=== PATIENT | male | born 1950 | race Caucasian/White ===

== ENCOUNTER 2024-07-24 09:59 | Observation (INO) | payer MEDICARE ==
[~2024-07-24] VITALS: Ht 182.9 cm; Wt 81.6 kg
--- NOTE | 2024-07-24 10:07 | ERN ---
General Chief Complaint: Chest Pain Stated Complaint: CHEST PAIN Time Seen by MD: 10:01 Source: patient History of Present Illness Initial Comments Patient is a 74-year-old male coming in with chest pressure. Patient states that the chest pressure has been ongoing for three days. He states [place] He also states that the pain became worse this morning decided to come in for further evaluation. No fever or chills. Allergies: Coded Allergies: No Known Allergies (Unverified Allergy, Unknown, 07/24/24) Past Medical History Past Medical History: CAD, Diabetes-Type II, High Cholesterol, Heart Disease, Hypertension Past Surgical History: Other Surgical History Other: X3 CARDIAC STENTS ROS Dictation CONSTITUTIONAL: No chills, no fever, no weakness, no diaphoresis, no malaise. HEAD/FACE: No signs of trauma. EENT: No eye pain, no blurred vision, no tearing, no double vision, no ear pain, no ear discharge, no nose pain, no nasal congestion, no throat pain, no throat swelling, no mouth pain. RESPIRATORY: No cough, no orthopnea, no SOB, no stridor, no wheezing. CARDIOVASCULAR: chest pain, no edema, no palpitations, no syncope. GASTROINTESTINAL/ABDOMINAL: No abdominal pain, no constipation, no diarrhea, no nausea, no vomiting. GENITOURINARY: No abnormal discharge, no dysuria, no frequent urination, no hem aturia. No complaints of pain in the genitals. MUSCULOSKELETAL: No back pain, no gout, no joint pain, no joint swelling, no mu scle pain, no muscle stiffness, no neck pain. INTEGUMENTARY: No change in color, no change in hair/nails, no dryness, no lesion, no lumps, no rash. NEUROLOGICAL/PSYCH: No anxiety, not depressed, no emotional problem, no headache, no numbness, no pre-existing deficit, no history of seizures, no tremors, no weakness. HEMATOLOGIC/LYMPHATIC: Not anemic, no history of blood clots, no apparent bleeding, no bruising, glands not swollen. All Systems Negative, Except as Noted. Physical Exam Physical Exam Dictation VITAL SIGNS: Reviewed. GENERAL APPEARANCE: Alert, oriented x3, no acute distress, obese. HEAD AND FACE: Non-traumatic. EYES: PERRL, pink conjunctivas, eyelid no trauma, anterior chamber clear. EARS: Pinnas intact and no signs of trauma or erythema. Ear canals clear and no discharge. TMs no erythema. NOSE: No discharge, no bleeding. OROPHARYNX: Mouth normal, teeth no caries, tongue pink. Pharynx clear, no erythema. Tonsils no exudates, no abscesses noted. Mucous membrane moist. NECK: Supple, non-tender, no thyromegaly, no masses, no JVD, no bruits. BREAST: Deferred. CHEST: No tenderness, no crepitus, no paradoxical movement, no retractions. LUNGS: Clear, well-ventilated, symmetric, no rales, no wheezing, no rhonchi, no stridor, good breath sounds bilaterally. HEART: Regular rate, regular rhythm, no murmur, no gallops. VASCULAR: No peripheral edema. ABDOMEN: Soft, positive bowel sounds, nondistended, no guarding, nontender, no rebound, no masses no hepatomegaly, no splenomegaly, no Esparza's sign, no hernias. RECTAL: Deferred. GENITAL: Deferred. NEUROLOGICAL: Normal speech, gross motor function intact, gross sensory function intact. MUSCULOSKELETAL: Neck nontender, full range of motion, back nontender, full range of motion. EXTREMITIES: Nontender, full range of motion. SKIN: Color pink, dry, no turgor, no rash, no lacerations, no abrasions, no contusions. LYMPHATICS: Deferred. Results Laboratory and Microbiology Lab and Micro Result Laboratory Tests Test 07/24/24 10:08 07/24/24 11:32 07/24/24 11:39 White Blood Count 5.3 K/uL (4.8-10.8) Red Blood Count 4.52 MIL/uL (4.50-6.20) Hemoglobin 14.3 g/dL (14.0-18.0) Hematocrit 41.9 % (42-54) L Mean Corpuscular Volume 92.7 fL (79-99) Mean Corpuscular Hemoglobin 31.6 pg (27.0-33.0) Mean Corpuscular Hemoglobin Concent 34.1 g/dL (32.0-36.0) Red Cell Distribution Width 13.1 % (11.0-15.5) Platelet Count 186 K/uL (130-400) Mean Platelet Volume 9.8 fL (7.5-10.5) Immature Granulocyte % (Auto) 0.4 % (0-1) Neutrophils (%) (Auto) 54.6 % (40.0-77.0) Lymphocytes (%) (Auto) 27.1 % (21.0-51.0) Monocytes (%) (Auto) 12.5 % (3.0-13.0) Eosinophils (%) (Auto) 4.5 % (0.0-8.0) Basophils (%) (Auto) 0.9 % (0.0-5.0) Neutrophils # (Auto) 2.9 K/uL (1.8-7.7) Lymphocytes # (Auto) 1.4 K/uL (1.0-4.8) Monocytes # (Auto) 0.7 K/uL (0.1-1.0) Eosinophils # (Auto) 0.24 K/uL (0.00-0.70) Basophils # (Auto) 0.05 K/uL (0.00-0.20) Absolute Immature Granulocyte (auto 0.02 K/uL (0-1) Nucleated Red Blood Cells 0.0 % (0.0-0.19) Prothrombin Time 11.0 SEC (9.6-11.6) Prothromb Time International Ratio 1.04 (0.85-1.15) Activated Partial Thromboplast Time 28.2 SEC (26.3-35.5) Sodium Level 140 mmol/L (136-145) Potassium Level 3.6 mmol/L (3.5-5.1) Chloride Level 107 mmol/L (101-111) Carbon Dioxide Level 28 mmol/L (21-32) Blood Urea Nitrogen 13 mg/dL (7-18) Creatinine 0.7 mg/dL (0.5-1.3) Glomerular Filtration Rate Calc 97 mL/min (>90) Random Glucose 106 mg/dL (70-105) H Total Calcium 9.0 mg/dL (8.5-10.1) Magnesium Level 2.00 mg/dL (1.80-2.40) Total Creatine Kinase 82 U/L (21-232) Troponin I High Sensitivity 5 ng/L (4-75) 5 ng/L (4-75) B-Type Natriuretic Peptide 33 pg/mL (0-100) Urine Color LIGHT-YELLOW (YELLOW) Urine Appearance CLEAR (CLEAR) Urine pH 6.5 (5.0-8.0) Urine Specific [place] 1.005 (1.001-1.031) Urine Protein NEGATIVE mg/dL (NEGATIVE) Urine Glucose (UA) NEGATIVE mg/dL (NEGATIVE) Urine Ketones 5 mg/dL (NEGATIVE) H Urine Occult Blood NEGATIVE (NEGATIVE) Urine Nitrate NEGATIVE (NEGATIVE) Urine Bilirubin NEGATIVE mg/dL (NEGATIVE) Urine Urobilinogen 0.2 mg/dL (0.2-1.0) Urine Leukocyte Esterase NEGATIVE Deepak/uL Urine RBC None /HPF (0-1) Urine WBC None /HPF (0-1) Urine Squamous Epithelial Cells RARE /HPF (0-2) Urine Bacteria None /HPF (None Seen) Labs Reviewed?: Yes EKG/XRAY/US/CT/MRI EKG Comment 07/24/2024 time 9:54 a.m. Ventricular rate [address] wave elevation or depression Sinus rhythm OK 153 MDM MDM: Differential diagnosis: ACS, NSTEMI, chest pain, history of stent placement Rationale: Tests considered and ordered secondary to shared decision making include: labs, ECG and radiology Previous outside records reviewed: Old ER visits. Risk of complication and/or morbidity or mortality of patient management: None Medications-Per medication reconciliation Need for hospitalization: Patient does meet criteria for hospitalization. Need for emergency major/minor surgery: No There are no social concerns with this patient. Prescription drug management Prescriptions will include symptomatic care Patient's prior external medical records from other ER visits were reviewed by me as indicated. Prior testing and results from previous visits were reviewed. Prior tests were taken into account with medical decision making and resource utilization, independent historian/historians were used to obtain complete medical history. I independently interpreted the test that were performed, results were reviewed by me and considered findings on radiology if ordered. Medical management and examination interpretation discussions were had by me with other qualified healthcare professionals as indicated for the patient's care. Patient is a 74-year-old male coming in to be evaluated for chest pressure chest discomfort. Per patient he has a extensive history of cardiac issues in the past with multiple stent placement. He states that chest pain began three days ago and progressively got worse. Laboratory workup including EKG was within normal limits. Patient will be admitted under the care of hospitalist group for ongoing management since the patient's heart score is high. ED Course Orders Procedure Category Date Status Time Cbc With Differential LAB 07/24/24 Complete 10:03 Prothrombin Time With LAB 07/24/24 Complete INR 10:03 B-Type Natriuretic LAB 07/24/24 Complete Peptide 10:03 Chest 1vw RAD 07/24/24 Resulted 10:03 12 Lead Ekg Tracing- EKG 07/24/24 Complete Technical 10:03 Magnesium LAB 07/24/24 Complete 10:03 Creatine Kinase, Total LAB 07/24/24 Complete 10:03 Troponin I High LAB 07/24/24 Complete Sensitivity 10:03 Urinalysis Profile LAB 07/24/24 Complete 10:03 Partial LAB 07/24/24 Complete Thromboplastin Time 10:03 Basic Metabolic Panel LAB 07/24/24 Complete 10:03 Nitroglycerin 0.4mg PHA 07/24/24 In Process Sl Tab (Nitrostat) 10:30 Troponin I High LAB 07/24/24 Complete Sensitivity 11:36 Current Medications Medications (Trade) Dose Ordered Sig/Curtis Route PRN Reason Start Time Stop Time Status Last Admin Dose Admin Nitroglycerin (Nitrostat) 0.4 mg Q5M PRN SL CHEST PAIN 07/24/24 10:30 07/24/24 10:21 Vital Signs Date Time Temp Pulse Resp B/P (MAP) Pulse Ox O2 Delivery O2 Flow Rate FiO2 07/24/24 10:30 89 17 122/64 96 Room Air* 0 21 07/24/24 10:01 98.1 85 20 140/82 96 Room Air DX & DISP Disposition: Inpatient Decision to Admit Time: 13:56 Departure Impression: Primary Impression: Chest pain Additional Impression: History of placement of stent in LAD coronary artery Condition: Stable Referrals: SELF,REFERRAL (PCP) REA DAUGHERTY MD Jul 24, 2024 10:07
--- NOTE | 2024-07-24 10:08 | NUR ---
PT JUST NOW PLACED IN MY ED BED 12
[2024-07-24] MEDS: NITROGLYCERIN 0.4 MG SL TAB SL PRN (10:21)
[2024-07-24 10:23] LABS: BASOPHILS # (AUTO) 0.05 K/uL (0.00-0.20); BASOPHILS % (AUTO) 0.9 % (0.0-5.0); EOSINOPHILS # (AUTO) 0.24 K/uL (0.00-0.70); EOSINOPHILS % (AUTO) 4.5 % (0.0-8.0); HEMATOCRIT 41.9 % (42-54); IMMATURE GRANULOCYTE ABSOLUTE 0.02 K/uL (0-1); LYMPHOCYTES # (AUTO) 1.4 K/uL (1.0-4.8); LYMPHOCYTES % (AUTO) 27.1 % (21.0-51.0); MEAN CORPUSCULAR HEMOGLOBIN 31.6 pg (27.0-33.0); MEAN CORPUSCULAR HGB CONC 34.1 g/dL (32.0-36.0); MEAN CORPUSCULAR VOLUME 92.7 fL (79-99); MONOCYTES # (AUTO) 0.7 K/uL (0.1-1.0); MONOCYTES % (AUTO) 12.5 % (3.0-13.0); NEUTROPHILS # (AUTO) 2.9 K/uL (1.8-7.7); NEUTROPHILS % (AUTO) 54.6 % (40.0-77.0); PLATELET COUNT (AUTO) 186 K/uL (130-400); RED BLOOD CELL COUNT(AUTO) 4.52 MIL/uL (4.50-6.20); RED CELL DISTRIBUTION WIDTH 13.1 % (11.0-15.5); WHITE BLOOD COUNT (AUTO) 5.3 K/uL (4.8-10.8)
--- NOTE | 2024-07-24 10:27 | HMCIMG ---
CHEST 1VW HISTORY: Chest pain COMPARISON: None FINDINGS: A frontal projection of the chest was obtained. No acute pulmonary infiltrates is seen. The heart is normal in size. Degenerative changes are seen. No evidence of aortic calcification is seen. IMPRESSION: 1. No acute pulmonary infiltrate is seen.
[2024-07-24 10:34] LABS: INR 1.04 (0.85-1.15)
[2024-07-24 10:35] LABS: PARTIAL THROMBOPLASTIN TIME 28.2 SEC (26.3-35.5)
[2024-07-24 10:37] LABS: CREATININE 0.7 mg/dL (0.5-1.3); POTASSIUM 3.6 mmol/L (3.5-5.1)
--- NOTE | 2024-07-24 10:58 | EKG ---
[facility] Test Date: 2024-07-24 Test Time: 09:54:25 Pat Name: KEDAR ARVIZU Department: [facility] Room: 420 Gender: M V Belt Builder: [id number] : 1950 Requested By: REA DAUGHERTY Order Number: [id number] Reading MD: Faisal Sánchez Measurements Intervals [place] Rate: 68 P: 72 NE: 153 QRS: 78 QRSD: 111 T: 111 QT: 406 QTc: 432 Interpretive Statements Sinus rhythm No previous ECG available for comparison Electronically Signed On 07-25-2024 07:03:19 CDT by Faisal Sánchez Please click the below link to view image of tracing.
[2024-07-24 10:59] LABS: B-TYPE NATRIURETIC PEPTIDE 33 pg/mL (0-100)
[2024-07-24 11:45] LABS: APPEARANCE,URINE CLEAR (CLEAR); BILIRUBIN,URINE NEGATIVE (NEGATIVE); COLOR,URINE LIGHT-YELLOW (YELLOW); GLUCOSE, URINE (UA) NEGATIVE (NEGATIVE); KETONES,URINE 5 mg/dL (NEGATIVE); LEUKOCYTE ESTERASE ,URINE NEGATIVE Leu/uL (NEGATIVE); NITRATE,URINE NEGATIVE (NEGATIVE); OCCULT BLOOD,URINE NEGATIVE (NEGATIVE); PH,URINE 6.5 (5.0-8.0); PROTEIN,URINE NEGATIVE (NEGATIVE); UROBILINOGEN,URINE 0.2 mg/dL (0.2-1.0)
[2024-07-24 11:47] LABS: ADD UA MICROSCOPIC YES
[2024-07-24 11:57] LABS: SQUAMOUS EPITHELIAL CELL,UR RARE /HPF (0-2)
[2024-07-24] MEDS ORDERED: LACTULOSE 20 GM/30 ML UDCUP PO PRN (14:00)
[2024-07-24] MEDS ORDERED: acetaMINOPHEN 325 MG TAB PO PRN (14:00)
[2024-07-24] MEDS ORDERED: PoTASSium chloRIDE 20MEQ/100ML 100 ML IV PRN (14:00)
[2024-07-24] MEDS ORDERED: PoTASSium chl 10% ELIXIR 20MEQ 20 MEQ/15 ML UDCUP PO PRN (14:00)
[2024-07-24] MEDS ORDERED: NITROGLYCERIN 0.4 MG SL TAB SL PRN (14:00)
[2024-07-24] MEDS ORDERED: PoTASSium chloRIDE 20MEQ ER 20 MEQ ERTAB PO PRN (14:00)
[2024-07-24] MEDS ORDERED: MAGNESIUM 2GM PREMIX 50ML 50 ML IV PRN (14:00)
--- NOTE | 2024-07-24 14:09 | HP ---
[facility] HISTORY [facility] PHYSICAL Date of Service: Jul 24, 2024 Time of Service: 13:56 HISTORY OF PRESENT ILLNESS: [ ] Admission date 07/24/2024 PCP; self referral This is a 75-year-old male that presents in ED with chief complaints of chest pain. Onset for three days patient reports he has been doing walking than usual in the past three days. Patient reports having chest discomfort throughout chest does not radiate. Patient reports not taking nitro at home. Denies diaphoretic palpitation shortness for breath swelling to lower extremity, syncope or GI symptoms. Patient does have extensive cardiac disease with x3 stent 1st two were placed two years ago and 3rd one was placed a year ago. Patient was a former smoker quit 30 years ago patient is has COPD and asthma. ER workup cardiac enzymes were negative x2 patient receive nitro paste chest pain resolved. [place] Home medication full by 1 mg tablet, a CBI 10 mg p.o. daily, majora 5 mg subQ every week, Jgmrib11 mg p.o. daily, gabapentin 100 mg daily, [id number] mg REVIEW OF SYSTEMS A14 point ROS was obtained all relevant positive was documented otherwise ROS negative PAST MEDICAL HISTORY: [ ] CAD, diabetes, hyperlipidemia, heart disease with heart stents, hypertension PAST SURGICAL HISTORY: [ ] X3 stents PAST SOCIAL HISTORY: [ ] Former smoker 30 years ago one pack and a half daily denies drinking a lcohol FAMILY HISTORY: [ ] Noncontributory Coded Allergies: No Known Allergies (Unverified Allergy, Unknown, 07/24/24) PHYSICAL EXAM GENERAL APPEARANCE: The patient is awake, alert, and oriented, in no acute cardiopulmonary distress. NEUROLOGICAL: Cranial nerves II-XII grossly intact. Motor is 5/5 in bilateral upper and lower extremities proximal to distal. No sensory deficits. HEENT: Face is symmetric. Pupils are equal and reactive. Extraocular movements are intact. NECK: Supple. No JVD. No thyromegaly. No submental, submandibular, pre- /postauricular, occipital or supraclavicular lymphadenopathy. CHEST: Normal chest expansion. No Telemetry. LUNGS: Absence of any rales, rhonchi or any wheezing. CARDIOVASCULAR: Regular. S1 and S2 normal. No appreciable rubs, murmurs or gallops. ABDOMEN: Soft, nontender, and nondistended. There is no rebound, voluntary guarding, or rigidity. : Deferred. No Kelsey. EXTREMITIES: Non-edematous and not cyanotic. No clubbing. Good capillary refill. SKIN: No skin breakdown. Vital Sign (Last 24 Hours) 07/24/24 07/24/24 10:01 10:30 Temp 98.1 Pulse 89 Resp 17 B/P (MAP) 122/64 Pulse Ox 96 O2 Delivery Room Air* O2 Flow Rate 0 FiO2 21 LABS: Laboratory: Test 07/24/24 11:39 07/24/24 11:32 07/24/24 10:08 Range/Units Troponin I High Sensitivity 5 4-75 ng/L Urine Color LIGHT-YELLOW YELLOW Urine Appearance CLEAR CLEAR Urine pH 6.5 5.0-8.0 Urine Specific [place] 1.005 1.001-1.031 Urine Protein NEGATIVE NEGATIVE mg/dL Urine Glucose (UA) NEGATIVE NEGATIVE mg/dL Urine Ketones 5 H NEGATIVE mg/dL Urine Occult Blood NEGATIVE NEGATIVE Urine Nitrate NEGATIVE NEGATIVE Urine Bilirubin NEGATIVE NEGATIVE mg/dL Urine Urobilinogen 0.2 0.2-1.0 mg/dL Urine Leukocyte Esterase NEGATIVE NEGATIVE Deepak/uL Urine RBC None 0-1 /HPF Urine WBC None 0-1 /HPF Urine Squamous Epithelial Cells RARE 0-2 /HPF Urine Bacteria None None Seen /HPF White Blood Count 5.3 4.8-10.8 K/uL Red Blood Count 4.52 4.50-6.20 MIL/uL Hemoglobin 14.3 14.0-18.0 g/dL Hematocrit 41.9 L 42-54 % Mean Corpuscular Volume 92.7 79-99 fL Mean Corpuscular Hemoglobin 31.6 27.0-33.0 pg Mean Corpuscular Hemoglobin Concent 34.1 32.0-36.0 g/dL Red Cell Distribution Width 13.1 11.0-15.5 % Platelet Count 186 130-400 K/uL Mean Platelet Volume 9.8 7.5-10.5 fL Immature Granulocyte % (Auto) 0.4 0-1 % Neutrophils (%) (Auto) 54.6 40.0-77.0 % Lymphocytes (%) (Auto) 27.1 21.0-51.0 % Monocytes (%) (Auto) 12.5 3.0-13.0 % Eosinophils (%) (Auto) 4.5 0.0-8.0 % Basophils (%) (Auto) 0.9 0.0-5.0 % Neutrophils # (Auto) 2.9 1.8-7.7 K/uL Lymphocytes # (Auto) 1.4 1.0-4.8 K/uL Monocytes # (Auto) 0.7 0.1-1.0 K/uL Eosinophils # (Auto) 0.24 0.00-0.70 K/uL Basophils # (Auto) 0.05 0.00-0.20 K/uL Absolute Immature Granulocyte (auto 0.02 0-1 K/uL Nucleated Red Blood Cells 0.0 0.0-0.19 % Prothrombin Time 11.0 9.6-11.6 SEC Prothromb Time International Ratio 1.04 0.85-1.15 Activated Partial Thromboplast Time 28.2 26.3-35.5 SEC Sodium Level 140 136-145 mmol/L Potassium Level 3.6 3.5-5.1 mmol/L Chloride Level 107 101-111 mmol/L Carbon Dioxide Level 28 21-32 mmol/L Blood Urea Nitrogen 13 7-18 mg/dL Creatinine 0.7 0.5-1.3 mg/dL Glomerular Filtration Rate Calc 97 >90 mL/min Random Glucose 106 H 70-105 mg/dL Total Calcium 9.0 8.5-10.1 mg/dL Magnesium Level 2.00 1.80-2.40 mg/dL Total Creatine Kinase 82 21-232 U/L B-Type Natriuretic Peptide 33 0-100 pg/mL Current Medications Medications (Trade) Dose Ordered Sig/Curtis Route PRN Reason Start Time Stop Time Status Last Admin Dose Admin Nitroglycerin (Nitrostat) 0.4 mg Q5M PRN SL CHEST PAIN 07/24/24 10:30 07/24/24 10:21 0.4 MG DIAGNOSTICS / RADIOLOGY: [ ] ASSESSMENT: Atypical chest pain POA Chronic knee pain POA Hx: Heart x3 PLAN: Admit: Medical surgical with tele condition:guarded Status:full IVF:[place]: Consultants: legal support specialist Medications statin therapy, Nitroglycerin sl PRN for chest pain, resume [id number] mg from home medication. Test: Echo to evaluate LV function. Labs cbc, cmp, mag+ lipid panel and TSH Replace electrolytes as needed as per protocol to keep potassium above 4.0 magnesium 2.0. A.c. HS monitoring with sliding scale coverage Home medications pending to be reviewed by RN nurse. PRN: MEDICATIONS Tylenol 650 mg po every 4 hrs for fever Zofran 4 mg IV every 6 hrs for n/v Hydralazine 5 mg IV every 4 hrs systolic pressure > 160 bowel regiment: lactulose 20 gm PO BID PRN constipation Pain management tramadol 50 mg p.o. as needed knee pain Supportive measures: DVT ppx, GI ppx all questions answered time spent: > 35 min Supervising MD: Dr. Carbajal c/d This document was generated in part using voice recognition software, occasional wrong word or sound alike substitutions may have occurred due to the inherent limitations of voice recognition software. Read the chart carefully and recognize using context, where the substitutions have occurred. Although every effort was made to edit the content, ship erector and typing errors may occur ADVANCED CARE PLANNING 1. Which of the following were discussed? Hospice Care - Yes / No Therapeutic options - Yes / No Advance Directives - Yes / No Other discussions - 2. Discussed with who? 3. Voluntary nature of this service was explained to the patient? Yes / No 4. Amount of time spent - 5. Reviewed by Physician? (if this service was performed by NPP) Yes / No ATTESTATION BY PHYSICIAN I have seen and examined the patient. I reviewed the documentation, medical decision making, and treatment plan as noted by the mid-level provider above. I agree with the findings and plan of care. RAFI CARBAJAL MD, ELIZABETH PREPRINT ANALYST Jul 24, 2024 14:09
[2024-07-24 14:14] LABS: BASOPHILS # (AUTO) 0.05 K/uL (0.00-0.20); BASOPHILS % (AUTO) 0.9 % (0.0-5.0); EOSINOPHILS % (AUTO) 3.7 % (0.0-8.0); HEMATOCRIT 40.7 % (42-54); IMMATURE GRANULOCYTE ABSOLUTE 0.01 K/uL (0-1); LYMPHOCYTES # (AUTO) 1.3 K/uL (1.0-4.8); LYMPHOCYTES % (AUTO) 24.3 % (21.0-51.0); MEAN CORPUSCULAR HEMOGLOBIN 31.9 pg (27.0-33.0); MEAN CORPUSCULAR HGB CONC 34.2 g/dL (32.0-36.0); MEAN CORPUSCULAR VOLUME 93.3 fL (79-99); MONOCYTES # (AUTO) 0.6 K/uL (0.1-1.0); MONOCYTES % (AUTO) 10.6 % (3.0-13.0); NEUTROPHILS # (AUTO) 3.3 K/uL (1.8-7.7); NEUTROPHILS % (AUTO) 60.3 % (40.0-77.0); PLATELET COUNT (AUTO) 180 K/uL (130-400); RED BLOOD CELL COUNT(AUTO) 4.36 MIL/uL (4.50-6.20); WHITE BLOOD COUNT (AUTO) 5.5 K/uL (4.8-10.8)
[2024-07-24 14:25] LABS: CREATININE 0.7 mg/dL (0.5-1.3); POTASSIUM 3.6 mmol/L (3.5-5.1)
[2024-07-24 14:29] LABS: ALBUMIN 3.7 g/dL (3.5-5.0); BILIRUBIN,TOTAL 0.6 mg/dL (0.2-1.0); TOTAL PROTEIN, SERUM 6.5 g/dL (6.0-8.3)
[2024-07-24] MEDS: traMADol HCL 50 MG TABLET PO SCH (16:19)
[2024-07-24] MEDS: INSULIN humuLIN R 100 UNIT/ML 3ML SQ SCH (16:30)
[2024-07-24 16:55] VITALS: O2SAT 98
--- NOTE | 2024-07-24 16:59 | NUR ---
MEDICATION RECONCILIATION: SPOUSE TO BRING IN HOME MEDS
[2024-07-24 17:55] VITALS: BP 153/75; PULSE 65; RESP 20; TEMP 98.2
[2024-07-24 20:00] VITALS: O2SAT 98
[2024-07-24] MEDS: FAMOTIDINE 20MG TAB PO SCH (20:22)
[2024-07-24] MEDS: atorVAStatin 20 MG TABLET PO SCH (20:22)
[2024-07-24 20:33] VITALS: BP 145/71; PULSE 66; RESP 19; TEMP 97.9
[2024-07-24 23:45] VITALS: BP 118/68; PULSE 71; RESP 18; TEMP 98.8
[2024-07-25 04:06] VITALS: BP 114/66; PULSE 64; RESP 18; TEMP 97.6
[2024-07-25 07:46] LABS: BASOPHILS # (AUTO) 0.05 K/uL (0.00-0.20); BASOPHILS % (AUTO) 0.9 % (0.0-5.0); EOSINOPHILS # (AUTO) 0.36 K/uL (0.00-0.70); EOSINOPHILS % (AUTO) 6.3 % (0.0-8.0); HEMATOCRIT 40.8 % (42-54); IMMATURE GRANULOCYTE ABSOLUTE 0.01 K/uL (0-1); LYMPHOCYTES # (AUTO) 1.4 K/uL (1.0-4.8); MEAN CORPUSCULAR HEMOGLOBIN 31.5 pg (27.0-33.0); MEAN CORPUSCULAR HGB CONC 33.6 g/dL (32.0-36.0); MEAN CORPUSCULAR VOLUME 93.8 fL (79-99); MONOCYTES # (AUTO) 0.6 K/uL (0.1-1.0); MONOCYTES % (AUTO) 10.5 % (3.0-13.0); NEUTROPHILS # (AUTO) 3.3 K/uL (1.8-7.7); NEUTROPHILS % (AUTO) 57.1 % (40.0-77.0); PLATELET COUNT (AUTO) 170 K/uL (130-400); RED BLOOD CELL COUNT(AUTO) 4.35 MIL/uL (4.50-6.20); RED CELL DISTRIBUTION WIDTH 13.3 % (11.0-15.5); WHITE BLOOD COUNT (AUTO) 5.7 K/uL (4.8-10.8)
[2024-07-25 08:00] VITALS: O2SAT 97
[2024-07-25 08:19] VITALS: BP 109/61; PULSE 60; RESP 19; TEMP 98
[2024-07-25] MEDS: cloPIDOgrel 75MG TAB PO SCH (08:32)
[2024-07-25 08:52] LABS: ALBUMIN 3.4 g/dL (3.5-5.0); BILIRUBIN,TOTAL 0.5 mg/dL (0.2-1.0); CREATININE 0.7 mg/dL (0.5-1.3); MAGNESIUM 2.1 mg/dL (1.80-2.40); POTASSIUM 3.7 mmol/L (3.5-5.1); THYROID STIMULATING HORMONE 1.23 uIU/mL (0.36-3.74); TOTAL PROTEIN, SERUM 6.1 g/dL (6.0-8.3)
[2024-07-25] MEDS: metoPROLOL tartRATE 25 MG TAB PO SCH (09:00)
[2024-07-25] MEDS ORDERED: ASPIRIN 81 MG EC TAB PO SCH (09:00)
--- NOTE | 2024-07-25 10:28 | NUR ---
DCP: Home with Friend ERIN met with pt, currently resides in [place] in a home with his friend Meghana Castillo [phone]. pt is a [place] from [place]. pt states that he has been here since March [place] on August [place], 2024. Pt. does not currently have a PCP here in the [place]. ERIN provided pt community resources for doctors/clinics while he is here. Pt did not report any food or utilities insecurities. Pt does use [facility] [place] in [place] for any RX. Pt did not report any DME and/or home health services while at home. pt states that he is able to complete is ADLs independently. Addendum: 07/25/24 at 1034 by RICARDO JADE SS Amended: Links added.
--- NOTE | 2024-07-25 10:50 | PN ---
[facility] PROGRESS NOTE Date of Service: Jul 25, 2024 Time of Service: 10:47 SUBJECTIVE: [ ] This is a 75-year-old male that presents in ED with chief complaints of chest pain. Onset for three days patient reports he has been doing walking than usual in the past three days. Patient reports having chest discomfort throughout chest does not radiate. Patient reports not taking nitro at home. Denies diaphoretic palpitation shortness for breath swelling to lower extremity, syncope or GI symptoms. Patient does have extensive cardiac disease with x3 stent 1st two were placed two years ago and 3rd one was placed a year ago. Patient was a former smoker quit 30 years ago patient is has COPD and asthma. ER workup cardiac enzymes were negative x2 patient receive nitro paste chest pain resolved. The [place]/24 patient is seen patient reports unable asleep yesterday due to noise. No chest pain overnight this has been palpitations waiting for emergency service worker's for recommendations versus outpatient workup. REVIEW OF SYSTEMS A14 point ROS was obtained all relevant positive was documented otherwise ROS negative PHYSICAL EXAM GENERAL APPEARANCE: The patient is awake, alert, and oriented, in no acute cardiopulmonary distress. NEUROLOGICAL: Cranial nerves II-XII grossly intact. Motor is 5/5 in bilateral upper and lower extremities proximal to distal. No sensory deficits. HEENT: Face is symmetric. Pupils are equal and reactive. Extraocular movements are intact. NECK: Supple. No JVD. No thyromegaly. No submental, submandibular, pre- /postauricular, occipital or supraclavicular lymphadenopathy. CHEST: Normal chest expansion. No Telemetry. LUNGS: Absence of any rales, rhonchi or any wheezing. CARDIOVASCULAR: Regular. S1 and S2 normal. No appreciable rubs, murmurs or gallops. ABDOMEN: Soft, nontender, and nondistended. There is no rebound, voluntary guarding, or rigidity. : Deferred. No Kelsey. EXTREMITIES: Non-edematous and not cyanotic. No clubbing. Good capillary refill. SKIN: No skin breakdown. Vital Signs (last 8hr) Date Time Temp Pulse Resp B/P (MAP) Pulse Ox O2 Delivery O2 Flow Rate FiO2 07/25/24 08:19 98.1 60 19 109/61 97 Room Air 07/25/24 04:06 97.5 64 18 114/66 98 Room Air 21 LABS: Laboratory: Test 07/25/24 05:30 07/25/24 05:09 07/24/24 19:40 07/24/24 11:32 Range/Units White Blood Count 5.7 4.8-10.8 K/uL Red Blood Count 4.35 L 4.50-6.20 MIL/uL Hemoglobin 13.7 L 14.0-18.0 g/dL Hematocrit 40.8 L 42-54 % Mean Corpuscular Volume 93.8 79-99 fL Mean Corpuscular Hemoglobin 31.5 27.0-33.0 pg Mean Corpuscular Hemoglobin Concent 33.6 32.0-36.0 g/dL Red Cell Distribution Width 13.3 11.0-15.5 % Platelet Count 170 130-400 K/uL Mean Platelet Volume 9.4 7.5-10.5 fL Immature Granulocyte % (Auto) 0.2 0-1 % Neutrophils (%) (Auto) 57.1 40.0-77.0 % Lymphocytes (%) (Auto) 25.0 21.0-51.0 % Monocytes (%) (Auto) 10.5 3.0-13.0 % Eosinophils (%) (Auto) 6.3 0.0-8.0 % Basophils (%) (Auto) 0.9 0.0-5.0 % Neutrophils # (Auto) 3.3 1.8-7.7 K/uL Lymphocytes # (Auto) 1.4 1.0-4.8 K/uL Monocytes # (Auto) 0.6 0.1-1.0 K/uL Eosinophils # (Auto) 0.36 0.00-0.70 K/uL Basophils # (Auto) 0.05 0.00-0.20 K/uL Absolute Immature Granulocyte (auto 0.01 0-1 K/uL Nucleated Red Blood Cells 0.0 0.0-0.19 % Sodium Level 140 136-145 mmol/L Potassium Level 3.7 3.5-5.1 mmol/L Chloride Level 109 101-111 mmol/L Carbon Dioxide Level 30 21-32 mmol/L Blood Urea Nitrogen 13 7-18 mg/dL Creatinine 0.7 0.5-1.3 mg/dL Glomerular Filtration Rate Calc 97 >90 mL/min Random Glucose 103 70-105 mg/dL Total Calcium 8.5 8.5-10.1 mg/dL Magnesium Level 2.10 1.80-2.40 mg/dL Total Bilirubin 0.5 0.2-1.0 mg/dL Aspartate Amino Transf (AST/SGOT) 15 10-37 U/L Alanine Aminotransferase (ALT/SGPT) 24 12-78 U/L Alkaline Phosphatase 51 50-136 U/L Total Protein 6.1 6.0-8.3 g/dL Albumin 3.4 L 3.5-5.0 g/dL Triglycerides Level 76 30-200 mg/dL Cholesterol Level 101 <200 mg/dL LDL Cholesterol 41 0-99 mg/dL HDL Cholesterol 53 29-71 mg/dL Thyroid Stimulating Hormone (TSH) 1.23 0.36-3.74 uIU/mL Whole Blood Glucose 89 70-110 MG/DL Troponin I High Sensitivity 6 4-75 ng/L Urine Color LIGHT-YELLOW YELLOW Urine Appearance CLEAR CLEAR Urine pH 6.5 5.0-8.0 Urine Specific Joffre 1.005 1.001-1.031 Urine Protein NEGATIVE NEGATIVE mg/dL Urine Glucose (UA) NEGATIVE NEGATIVE mg/dL Urine Ketones 5 H NEGATIVE mg/dL Urine Occult Blood NEGATIVE NEGATIVE Urine Nitrate NEGATIVE NEGATIVE Urine Bilirubin NEGATIVE NEGATIVE mg/dL Urine Urobilinogen 0.2 0.2-1.0 mg/dL Urine Leukocyte Esterase NEGATIVE NEGATIVE Deepak/uL Urine RBC None 0-1 /HPF Urine WBC None 0-1 /HPF Urine Squamous Epithelial Cells RARE 0-2 /HPF Urine Bacteria None None Seen /HPF Test 07/24/24 10:08 Range/Units Prothrombin Time 11.0 9.6-11.6 SEC Prothromb Time International Ratio 1.04 0.85-1.15 Activated Partial Thromboplast Time 28.2 26.3-35.5 SEC Total Creatine Kinase 82 21-232 U/L B-Type Natriuretic Peptide 33 0-100 pg/mL Current Medications Medications (Trade) Dose Ordered Sig/Curtis Route PRN Reason Start Time Stop Time Status Last Admin Dose Admin Acetaminophen (TYLenol 325MG TAB) 650 mg Q4H PRN PO TEMPERATURE GREATER THAN 101.5 07/24/24 14:00 08/23/24 13:59 Aspirin (Aspirin 81mg Ec Tab) 81 mg DAILY PO 07/25/24 09:00 07/24/24 14:43 DC Atorvastatin Calcium (LIPItor 20MG) 20 mg HS PO 07/24/24 21:00 08/23/24 20:59 07/24/24 20:22 20 MG Clopidogrel Bisulfate (plaVIX 75MG) 75 mg DAILY PO 07/25/24 09:00 08/24/24 08:59 07/25/24 08:32 75 MG Famotidine (Pepcid 20mg Tab) 20 mg BID PO 07/24/24 21:00 08/23/24 20:59 07/25/24 08:32 20 MG Insulin Human Regular (humuLIN R 100 UNIT/ML 3ML) INSULIN SLIDING SCAL... ACHS SQ 07/24/24 16:30 08/23/24 16:29 Lactulose (Constulose 20gm/ 30ml Udcup) 20 gm BID PRN PO CONSTIPATION 07/24/24 14:00 08/23/24 13:59 Magnesium Sulfate 50 ml @ 0 mls/hr PROTOCOL PRN IV low mag level 07/24/24 14:00 08/23/24 13:59 Metoprolol Tartrate (loprESSOR) 25 mg DAILY PO 07/25/24 09:00 08/24/24 08:59 Nitroglycerin (Nitrostat) 0.4 mg AD PRN SL CHEST PAIN 07/24/24 14:00 08/23/24 13:59 Nitroglycerin (Nitrostat) 0.4 mg Q5M PRN SL CHEST PAIN 07/24/24 10:30 07/24/24 14:04 DC 07/24/24 10:21 0.4 MG Potassium Chloride 100 ml @ 100 mls/hr AD PRN IV POTASSIUM PROTOCOL 07/24/24 14:00 08/23/24 13:59 Potassium Chloride (K-Dur/Klor-Con 20meq) 20 meq AD PRN PO POTASSIUM PROTOCOL 07/24/24 14:00 08/23/24 13:59 Potassium Chloride (KCl 10% Elixir 20meq/15ml) 20 meq AD PRN PO POTASSIUM PROTOCOL 07/24/24 14:00 08/23/24 13:59 Tramadol HCl (UltRAM) 50 mg Q4H PO 07/24/24 15:00 07/29/24 14:59 07/24/24 16:19 50 MG DIAGNOSTICS / RADIOLOGY: [ ] ASSESSMENT: Atypical chest pain POA Chronic knee pain POA Hx: x3 Heart stent PLAN: Admit: Medical surgical with tele condition:guarded Status:full IVF:Heplock: Consultants : Granite Polisher Apprentice Medications statin therapy, Nitroglycerin sl PRN for chest pain, resume [id number] mg from home medication. Test: Echo to evaluate LV function done pending results Labs cbc, cmp, mag+ in am Replace electrolytes as needed as per protocol to keep potassium above 4.0 magnesium 2.0. A.c. HS monitoring with sliding scale coverage home medications resumed Pain management tramadol 50 mg p.o. as needed knee pain Supportive measures: DVT ppx, GI ppx all questions answered Supervising MD: Dr. Carbajal c/d This document was generated in part using voice recognition software, occasional wrong word or sound alike substitutions may have occurred due to the inherent limitations of voice recognition software. Read the chart carefully and recognize using context, where the substitutions have occurred. Although every effort was made to edit the content, suppression crew leader and typing errors may occur ATTESTATION BY PHYSICIAN I have seen and examined the patient. I reviewed the documentation, medical decision making, and treatment plan as noted by the mid-level provider above. I agree with the findings and plan of care. RAFI CARBAJAL MD, ELIZABETH NP Jul 25, 2024 10:50
--- NOTE | 2024-07-25 11:20 | CONS ---
[facility] CARDIOLOGY CONSULTATION REPORT Cardiology consultation note dictated for Reid Haile MD Date Patient Seen: Jul 25, 2024 Requesting Physician: Robyn Anton NP Reason for Consultation: Chest pain History of Present Illness: This is a 74-year-old male from [place] with a past medical history hypertension, hyperlipidemia, diabetes mellitus type 2, CAD s/p a 3.0x34 mm Resolute Galo stent to the proximal LAD and a 3.0x 22mm Resolute Galo stent to the distal RCA in 2021, s/p cardiac stent x1 placed in the spring to an unknown vessel, last Lexiscan stress test over 2 years ago he recalls it being normal, COPD, asthma, arthritis, and former tobacco use who presented to the ED with complaints of chest discomfort. Cardiology has been consulted for chest pain. Over the last 3-4 days, the patient began to experience intermittent, non-radiating anterior chest discomfort described as a tightness with a 6/10 intensity. Accompanying symptom included shortness of breath. Symptoms were aggravated by walking and deep inspiration. Relieving factor was sublingual nitroglycerin. Troponin of 5, 5, and 6. EKG demonstrated normal sinus rhythm with a heart rate of 68 bpm, no ischemia noted. The patient admitted the chest discomfort felt similar to the the pain he experienced prior to cardiac stents. He has been compliant with clopidogrel with a few missed doses but never more than one day. He currently admits to midsternal chest discomfort of a dull quality with a 1/10 intensity. The patient sees a behavioral intervention specialist in [place] but does not recall their name. BNP 33. LDL 41. Past Medical History: As per HPI and summarized below Past Surgical History: Neck fusion Back surgery Right hand carpal tunnel surgery Right knee arthroscopy Cataract surgery Family History: The patient's father had prostate cancer. The patient's mother had an enlarged heart. Social History: The patient lives alone Habits: The patient denies alcohol, tobacco, or illicit drug use. The patient was a former smoker but quit 30 years ago Home Meds: Medication reconciliation is pending Current Meds: Current Medications Medications Dose Ordered Sig/Curtis Start Time Stop Time Status Last Admin Famotidine 20 mg BID 07/24/24 21:00 08/23/24 20:59 07/25/24 08:32 Acetaminophen 650 mg Q4H PRN 07/24/24 14:00 08/23/24 13:59 Lactulose 20 gm BID PRN 07/24/24 14:00 08/23/24 13:59 Nitroglycerin 0.4 mg AD PRN 07/24/24 14:00 08/23/24 13:59 Magnesium Sulfate 50 ml @ 0 mls/hr PROTOCOL PRN 07/24/24 14:00 08/23/24 13:59 Potassium Chloride 100 ml @ 100 mls/hr AD PRN 07/24/24 14:00 08/23/24 13:59 Potassium Chloride 20 meq AD PRN 07/24/24 14:00 08/23/24 13:59 Potassium Chloride 20 meq AD PRN 07/24/24 14:00 08/23/24 13:59 Atorvastatin Calcium 20 mg HS 07/24/24 21:00 08/23/24 20:59 07/24/24 20:22 Insulin Human Regular INSULIN SLIDING SCAL... ACHS 07/24/24 16:30 08/23/24 16:29 Clopidogrel Bisulfate 75 mg DAILY 07/25/24 09:00 08/24/24 08:59 07/25/24 08:32 Metoprolol Tartrate 25 mg DAILY 07/25/24 09:00 08/24/24 08:59 Tramadol HCl 50 mg Q4H 07/24/24 15:00 07/29/24 14:59 07/24/24 16:19 Review of Systems: CONST: No fever, fatigue, or weight changes. EYES: No recent vision problems. ENT: No congestion, ear pain, or sore throat. C/V: No chest pain, palpitations, or edema. RESP: No cough, congestion, wheezing or shortness of breath. GI: No abdominal pain, nausea, vomiting, constipation, or diarrhea. : No incontinence or dysuria. SKIN: No rash. NEURO: No headache, focal numbness or weakness, dizziness, or seizures. PSYCH: No depression or anxiety. HEME: No abnormal bruising or bleeding. LYMPH: No swollen glands. Physical Examination: GENERAL: No acute distress. HEAD: Normal with no signs of head trauma. EYES: PERRLA, EOMI, conjunctiva and sclera normal. ENT: Hearing grossly intact, normal oropharynx. NECK: Supple without JVD. There is no tenderness, lymphadenopathy, or masses. No thyromegaly. Normal carotid upstrokes without bruits. LUNGS: Clear breath sounds bilaterally. No wheezes, or rhonchi. HEART: Normal rate and rhythm. Normal S1 and S2 without murmurs, gallop or rub. VASC: Peripheral pulses +2 bilaterally. ABD: Bowel sounds normal, soft, nontender, no masses, no organomegaly. No audible bruits. : Not examined LYMPH: No lymphadenopathy noted. EXT: No clubbing, cyanosis or edema. SKIN: No rashes or lesions noted. NEURO: Awake, alert, and oriented x3. No focal sensory or strength deficits noted. Vital Signs (last 8hr) Date Time Temp Pulse Resp B/P (MAP) Pulse Ox O2 Delivery O2 Flow Rate FiO2 07/25/24 08:19 98.1 60 19 109/61 97 Room Air 07/25/24 08:00 97 Room Air* 0 21 07/25/24 04:06 97.5 64 18 114/66 98 Room Air 21 Laboratory: Hematology Labs: Test 07/25/24 05:30 Range/Units White Blood Count 5.7 4.8-10.8 K/uL Red Blood Count 4.35 L 4.50-6.20 MIL/uL Hemoglobin 13.7 L 14.0-18.0 g/dL Hematocrit 40.8 L 42-54 % Mean Corpuscular Volume 93.8 79-99 fL Mean Corpuscular Hemoglobin 31.5 27.0-33.0 pg Mean Corpuscular Hemoglobin Concent 33.6 32.0-36.0 g/dL Red Cell Distribution Width 13.3 11.0-15.5 % Platelet Count 170 130-400 K/uL Mean Platelet Volume 9.4 7.5-10.5 fL Immature Granulocyte % (Auto) 0.2 0-1 % Neutrophils (%) (Auto) 57.1 40.0-77.0 % Lymphocytes (%) (Auto) 25.0 21.0-51.0 % Monocytes (%) (Auto) 10.5 3.0-13.0 % Eosinophils (%) (Auto) 6.3 0.0-8.0 % Basophils (%) (Auto) 0.9 0.0-5.0 % Neutrophils # (Auto) 3.3 1.8-7.7 K/uL Lymphocytes # (Auto) 1.4 1.0-4.8 K/uL Monocytes # (Auto) 0.6 0.1-1.0 K/uL Eosinophils # (Auto) 0.36 0.00-0.70 K/uL Basophils # (Auto) 0.05 0.00-0.20 K/uL Absolute Immature Granulocyte (auto 0.01 0-1 K/uL Nucleated Red Blood Cells 0.0 0.0-0.19 % Chemistry Labs: Test 07/25/24 05:30 07/25/24 05:09 07/24/24 19:40 07/24/24 10:08 Range/Units Sodium Level 140 136-145 mmol/L Potassium Level 3.7 3.5-5.1 mmol/L Chloride Level 109 101-111 mmol/L Carbon Dioxide Level 30 21-32 mmol/L Blood Urea Nitrogen 13 7-18 mg/dL Creatinine 0.7 0.5-1.3 mg/dL Glomerular Filtration Rate Calc 97 >90 mL/min Random Glucose 103 70-105 mg/dL Total Calcium 8.5 8.5-10.1 mg/dL Magnesium Level 2.10 1.80-2.40 mg/dL Total Bilirubin 0.5 0.2-1.0 mg/dL Aspartate Amino Transf (AST/SGOT) 15 10-37 U/L Alanine Aminotransferase (ALT/SGPT) 24 12-78 U/L Alkaline Phosphatase 51 50-136 U/L Total Protein 6.1 6.0-8.3 g/dL Albumin 3.4 L 3.5-5.0 g/dL Triglycerides Level 76 30-200 mg/dL Cholesterol Level 101 <200 mg/dL LDL Cholesterol 41 0-99 mg/dL HDL Cholesterol 53 29-71 mg/dL Thyroid Stimulating Hormone (TSH) 1.23 0.36-3.74 uIU/mL Whole Blood Glucose 89 70-110 MG/DL Troponin I High Sensitivity 6 4-75 ng/L Total Creatine Kinase 82 21-232 U/L B-Type Natriuretic Peptide 33 0-100 pg/mL Coagulation Labs: Test 07/24/24 10:08 Range/Units Prothrombin Time 11.0 9.6-11.6 SEC Prothromb Time International Ratio 1.04 0.85-1.15 Activated Partial Thromboplast Time 28.2 26.3-35.5 SEC Diagnostics / Radiology: Impression and Plan: Atypical Chest pain, with chest wall tenderness consistent with costochondritis: CAD s/p a 3.0x34mm Resolute Galo stent to the proximal LAD and a 3.0x 22mm Resolute [place] stent to the distal RCA in 2021 S/p coronary stent x1 placed in the spring to an unknown vessel: -The patient's 12 lead EKGs x2 were normal, serial troponins x3 were normal at 5, 5, and 6 -low likelihood of acute coronary syndrome -cleared for discharge home with a short trial of NSAID therapy -Echocardiogram is pending to be read Comorbidities: Hypertension Hyperlipidemia Diabetes mellitus type 2 COPD Asthma Arthritis Former tobacco (quit 30 years ago) PHYSICIAN ATTESTATION OF PHYSICIAN REFRESH TECHNICIAN DOCUMENTATION: I attest that I was physically present for the vee portions of the service and evaluated the patient with the Physician Comber Tender, and I reviewed and discussed the case with the Physician Comber Tender and made modifications to the Physician Comber Tender's findings and plans of care as documented above JERRELL MCKEON Jul 25, 2024 11:20 REID HAILE MD Jul 25, 2024 12:10
[2024-07-25] MEDS ORDERED: NITROGLYCERIN PATCH 0.2 MG/HR TD SCH (11:30)
--- NOTE | 2024-07-25 11:30 | NUR ---
PATIENT'S PRESCRIBED NITRO PATCH IS NOT AVAILABLE ON BOTH [facility]CE[facility]S ON THE FLOOR. CONTACTED PHARMACY. WAITING ON THEM TO BRING IT UP AND WILL THEN ADMINISTER.
[2024-07-25 12:00] VITALS: BP 124/68; PULSE 74
[2024-07-25] MEDS ORDERED: NAPR-1192 PO (12:15)
--- NOTE | 2024-07-25 12:27 | DS ---
Discharge Summary Hospital Course Summary: This is a 75-year-old male that presents in ED with chief complaints of chest pain. Onset for three days patient reports he has been doing walking than usual in the past three days. Patient reports having chest discomfort throughout chest does not radiate. Patient reports not taking nitro at home. Denies diaphoretic palpitation shortness for breath swelling to lower extremity, syncope or GI symptoms. Patient does have extensive cardiac disease with x3 stent 1st two were placed two years ago and 3rd one was placed a year ago. Patient was a former smoker quit 30 years ago patient is has COPD and asthma. ER workup cardiac enzymes were negative x2 patient receive nitro paste chest pain resolved. The patient does follow a dispatcher radio's up [place]. 07/25/24 patient is seen patient reports unable asleep yesterday due to noise. No chest pain overnight this has been palpitations waiting for dispatcher radio's for recommendations versus outpatient workup. LONG TERM CARE PHLEBOTOMIST'S CONSULTED WITH PATIENT. NO FURTHER WORKUP RECOMMENDED short trial OF NSAID therapy. PATIENT WILL FOLLOW-UP [facility] IN ONE-WEEK. PATIENT IS CLINICALLY STABLE FOR DISCHARGE NO CHEST PAIN EVENTS OVERNIGHT. Procedure(s): REASON: chest pain ORDERING PHYSICIAN: NATHAN MILLER NP PROCEDURE: ECHO CMP - ECHO 2-D COMPLETE APPROVED REPORT EXAM: Two-dimensional and M-mode echocardiogram with Doppler and color Doppler. INDICATION ICD: Chest Pain 2D Dimensions RVDd 3.5 cm LVEF(%) 69.5 (>50%) LVED Vol(simp.) 89.7 mL IVSd 0.9 (0.7-1.1cm) FS(%) 39 % LVES Vol(simp.) 39.8 mL LVDd 4.3 (3.8-5.6cm) LA (2D) 3.3 (1.6-4.0cm) LVEF(%, simp.) 56 % PWd 1.0 (0.7-1.1cm) Ao Root(2D) 3.5 (2.0-3.7cm) LA ESV INDEX (BP) 30.05 mL/m2 LVDs 2.7 (2.5-4.0cm) LVOT diam 2.1 (1.8-2.4cm) IVC diam 1.5 cm Deformation Strain Apical 4 -18.0 % Apical 2 -22.0 % Apical 3 -19.0 % Global Strain -20.0 % M-Mode Dimensions EPSS 0.5 cm LA (MM) 3.6 (1.6-4.0cm) Ao Root(MM) 3.6 (2.0-3.7cm) Aortic Valve AoV Vmax 1.0 m/s Ao Peak GR 4.1 mmHg LVOT Vmax 1.0 m/s AoV VTI 0.2 m Ao Mean GR 2.2 mmHg LVOT VTI 0.22 m LILIAM (VMAX) 3.3 cm2 LILIAM (VTI) 3.3 cm2 Mitral Valve MV E Vmax 76.0 cm/s DECEL Time 191 ms MV A Vmax 73.1 cm/s P 1/2 T 83 ms E/A ratio 1.0 MVA (PHT) 2.7 cm2 TDI E/E' Medial 10.9 Medial E' Peak V 7.00 cm/s Tricuspid Valve TR Vmax 2.4 m/s RVSP 22.8 mmHg TR Peak GR 22.8 mmHg Left Ventricle The left ventricle is normal size. GS -20%. There is normal LV segmental wall motion. There is normal left ventricular wall thickness. LVEF is 55-60%. 3D LVEF 58%. The left ventricular diastolic function is normal. Right Ventricle The right ventricle is normal size. The right ventricular systolic function is normal. Normal TAPSE. Atria The left atrium size is normal. The right atrium size is normal. Aortic Valve The aortic valve is normal in structure. No aortic regurgitation is present. There is no aortic valvular stenosis. Mitral Valve The mitral valve is normal in structure. There is no evidence of significant mitral regurgitation. There is no mitral valve stenosis. Tricuspid Valve The tricuspid valve is normal in structure. There is mild tricuspid valve regurgitation noted. Pulmonic Valve The pulmonary valve is normal in structure. There is no pulmonic valvular regurgitation. Great Vessels The aortic root is normal in size. The IVC is normal in size and collapses >50% with inspiration. Pericardium There is no pericardial effusion. Conclusion The left atrium size is normal. The left ventricle is normal size. There is normal left ventricular wall thickness. GS -20%. There is normal LV segmental wall motion. LVEF is 55-60%. 3D LVEF 58%. The left ventricular diastolic function is normal. The aortic valve is normal in structure. There is no evidence of significant mitral regurgitation. There is no pericardial effusion. DICTATED BY: KATLIN FORD Assessment/Plan: discharged dx's; Atypical chest pain ruled out ACS POA Chronic knee pain POA Hx: Heart x3 PLAN: ADMISSION DATE: 07/24/2024 DISCHARGE DATE: 07/25/24 DISPOSITION: home CONDITION: stable SALES ASSOCIATE KEY HOLDER(S): dispatcher radio FOLLOW UP APPOINTMENT(S): DR. FORD IN ONE-WEEK PROCEDURES None on this admission IMAGING (S) report attached to summary :Echo MICROBIOLOGY: report attached to summary; NONE ACTIVITY: AMBULATE HOME MEDICATIONS will continue with home medications: reviewed his list from external CHANGES ON HOME MEDICATIONS NONE NEW MEDICATIONS NAPROXEN DIRECTED TEACHING: ADVISED PATIENT ON SIDE EFFECTS AND ADVERSE REACTIONS OF MEDICATION. Emergency instructions: The patient was instructed to present to the nearest Emergency Department or call 911 should their symptoms return or worsen. Home Medications: Active Scripts Naproxen (Naproxen) 375 Mg Tablet, 375 TAB PO BID for pain for 5 Days, #10 TAB 0 Refills with food Prov:SHAY FORD MD 07/25/24 New Medications: Naproxen (Naproxen) 375 Mg Tablet 375 TAB PO BID for pain for 5 Days, #10 TAB 0 Refills with food Time spent arranging discharge: 31-60 minutes ATTESTATION BY PHYSICIAN I have seen and examined the patient. I reviewed the documentation, medical decision making, and treatment plan as noted by the mid-level provider above. I agree with the findings and plan of care. RAFI CARBAJAL MD, ELIZABETH NP Jul 25, 2024 12:27
[2024-07-25] MEDS: NAPROXEN 250 MG TAB PO SCH (12:48)
--- NOTE | 2024-07-25 12:57 | NUR ---
DISCHARGE DISCHARGE ORDERS GIVEN FOR PATIENT TO BE DISCHARGED HOME. DISCHARGE INSTRUCTIONS, FOLLOW UP APPOINTMENTS AND DOCUMENTATION GIVEN TO PATIENT AT BEDSIDE. VOICED UNDERSTANDING. IV DISCONTINUED BY JENNI MODI. NO S/S OF INFECTION NOTED. PATIENT TOLERATED WELL. BANDS REMOVED. PENDING TRANSPORTATION.
--- NOTE | 2024-07-25 13:17 | NUR ---
DISCHARGE PATIENT LEFT VIA WHEELCHAIR, NO S/S OF DISTRESS NOTED.
--- NOTE | 2024-07-25 20:34 | HMCSR ---
APPROVED REPORT EXAM: Two-dimensional and M-mode echocardiogram with Doppler and color Doppler. INDICATION ICD: Chest Pain 2D Dimensions RVDd3.5 cmLVEF(%)69.5 (>50%)LVED Vol(simp.)89.7 mL IVSd0.9 (0.7-1.1cm)FS(%)39 %LVES Vol(simp.)39.8 mL LVDd4.3 (3.8-5.6cm)LA (2D)3.3 (1.6-4.0cm)LVEF(%, simp.)56 % PWd1.0 (0.7-1.1cm)Ao Root(2D)3.5 (2.0-3.7cm)LA ESV INDEX (BP)30.05 mL/m2 LVDs2.7 (2.5-4.0cm)LVOT diam2.1 (1.8-2.4cm) IVC diam1.5 cm Deformation Strain Apical 4-18.0 % Apical 2-22.0 % Apical 3-19.0 % Global Strain-20.0 % M-Mode Dimensions EPSS0.5 cm LA (MM)3.6 (1.6-4.0cm) Ao Root(MM)3.6 (2.0-3.7cm) Aortic Valve AoV Vmax1.0 m/Ethan Peak GR4.1 mmHgLVOT Vmax1.0 m/s AoV VTI0.2 mAo Mean GR2.2 mmHgLVOT VTI0.22 m LILIAM (VMAX)3.3 cm2AVA (VTI) 3.3 cm2 Mitral Valve MV E Vmax76.0 cm/sDECEL Wnym697 ms MV A Vmax73.1 cm/sP 1/2 T83 ms E/A ratio1.0MVA (PHT)2.7 cm2 TDI E/E' Fgigdz34.9 Medial E' Peak V7.00 cm/s Tricuspid Valve TR Vmax2.4 m/sRVSP22.8 mmHg TR Peak GR22.8 mmHg Left Ventricle The left ventricle is normal size. GS -20%. There is normal LV segmental wall motion. There is normal left ventricular wall thickness. LVEF is 55-60%. 3D LVEF 58%. The left ventricular diastolic functio n is normal. Right Ventricle The right ventricle is normal size. The right ventricular systolic function is normal. Normal TAPSE. Atria The left atrium size is normal. The right atrium size is normal. Aortic Valve The aortic valve is normal in structure. No aortic regurgitation is present. There is no aortic valvu lar stenosis. Mitral Valve The mitral valve is normal in structure. There is no evidence of significant mitral regurgitation. Th ere is no mitral valve stenosis. Tricuspid Valve The tricuspid valve is normal in structure. There is mild tricuspid valve regurgitation noted. Pulmonic Valve The pulmonary valve is normal in structure. There is no pulmonic valvular regurgitation. Great Vessels The aortic root is normal in size. The IVC is normal in size and collapses >50% with inspiration. Pericardium There is no pericardial effusion. Conclusion The left atrium size is normal. The left ventricle is normal size. There is normal left ventricular wall thickness. GS -20%. There is normal LV segmental wall motion. LVEF is 55-60%. 3D LVEF 58%. The left ventricular diastolic function is normal. The aortic valve is normal in structure. There is no evidence of significant mitral regurgitation. There is no pericardial effusion.
--- NOTE | 2024-07-26 06:39 | EKG ---
[facility] Test Date: 2024-07-25 Test Time: 11:03:12 Pat Name: KEDAR ARVIZU Department: [facility] Room: 420 1 Gender: M Kier Pleater: [id number] : 1950 Requested By: JERRELL MCKEON Order Number: [id number] Reading MD: Ev Lopez Measurements Intervals [place] Rate: 64 P: 42 MT: 106 QRS: 61 QRSD: 82 T: 56 QT: 434 QTc: 447 Interpretive Statements Sinus rhythm with short MT Nonspecific ST abnormality Compared to ECG 07/24/2024 09:54:25 Short MT interval now present ST (T wave) deviation now present Electronically Signed On 07-27-2024 10:54:08 CDT by Ev Lopez Please click the below link to view image of tracing.
== END 2024-07-25 13:22 | disposition home or self-care (01) ==
LOC: EDH 09:59 → EDHIP 10:00 → 4CH 16:55
PROVIDERS: ADMIT Internal Medicine; ATTEND Internal Medicine
DX: R07.89 Other chest pain (principal); G89.29 Other chronic pain; M25.569 Pain in unspecified knee; E11.9 Type 2 diabetes mellitus without complications; I11.9 Hypertensive heart disease without heart failure; E78.00 Pure hypercholesterolemia, unspecified; I25.10 Atherosclerotic heart disease of native coronary artery without angina pectoris; J45.909 Unspecified asthma, uncomplicated; Z87.891 Personal history of nicotine dependence; Z79.899 Other long term (current) drug therapy; Z95.5 Presence of coronary angioplasty implant and graft
CPT/HCPCS: 99285; 82550; 83735 ×3; 84484 ×3; 80053 ×2; 83880; 85025 ×3; 85610; 85730; 82948 ×4; 81001; 36415 ×2; 71045; 93005 ×2; 84443; 80061; 93306; 93356; 76376; G0378 ×22; 80048